=== PATIENT | female | born 1970 | race Caucasian/White ===

== ENCOUNTER 2021-01-02 06:50 | Day surgery (SDC) | payer BC, SELFPAY ==
[2020-12-25 19:26] VITALS: BMI 32.9
--- NOTE | 2021-01-01 09:27 | HP_ITS ---
DATE OF SERVICE: 01/02/2021 PREOPERATIVE DIAGNOSES: 1. Hammertoe deformity, left 5th toe. 2. Skin disease, left 5th toe. PLANNED PROCEDURE: 1. Left 5th toe arthroplasty for hammertoe repair. 2. Excision of skin lesion, left 5th toe. PAST MEDICAL HISTORY: None. CURRENT MEDICATIONS: None. PAST SURGICAL HISTORY: None. FAMILY HISTORY: Denies. SOCIAL HISTORY: The patient is a nonsmoker. Denies any illicit drug use. Relates occasional alcohol use. ALLERGIES: NO KNOWN DRUG ALLERGIES. HOSPITALIZATIONS: None. REVIEW OF SYSTEMS: Within normal limits. HISTORY OF PRESENT ILLNESS: This is a 50-year-old female who presents with pain and throbbing in her left 5th toe that has been present for several months that has been getting progressively worse with shoe gear, has tried change in shoes, soaking as well as different types of padding. PHYSICAL EXAM: GENERAL: Reveals a pleasant, alert, well-nourished, well-developed, well-hydrated individual who demonstrates proper attention to body habitus, in no acute distress. She is oriented x3. NEUROLOGICAL EXAM: Reveals intact sensorium. Pain sensation is normal. Vibratory sensation is intact. Pinprick sensation is normal. There is no anesthesia, burning, paresthesias, or tingling bilaterally. VASCULAR EXAM: DP and PT pulses are 3/4 bilaterally. Capillary refill is immediate to all digits. Skin temperature is warm to cool proximal to distal. Hair growth, texture, elasticity, and turgor are normal bilaterally. Pigmentation is normal and there is no edema. DERMATOLOGICAL EXAM: Reveals keratotic lesion noted at the lateral aspect of the PIP joint on the left fifth toe. ORTHOPEDIC EXAM: Digital deformity reveals adducted 5th toe reveals pain, swelling, redness, enlargement of the PIP joint of the left 5th toe. PLAN: Hammertoe surgery and excision of skin lesion surgery was discussed with the patient in great detail including risks of surgery and not having surgery, the potential surgical complications, the anesthesia, and the usual postoperative course. No guarantees were given. We discussed with the patient complications such as, but not limited to delayed or nonhealing, excessive scarring, excessive swelling, failure of the procedure, floppy toe infection, nonunion, numbness, chronic pain, recurrence, shortened toe, joint stiffness, failure of the procedure, and loss of toe, foot, life, or limb. Alternatives to the procedure were also discussed including conservative care. The patient would like to proceed with surgical treatment. The patient will obtain preoperative labs as well as medical clearance for surgery and anesthesia. The patient is made aware to stop any and all blood thinners including fish oil at least 1 week prior to surgery. The patient is made aware that driving may not be allowed during a portion of postoperative period. The patient is made aware not to utilize any smoking tobacco products at least 1 week prior to surgery and 3 months postoperatively. Prescription for pain medication was deferred. Recommended alternate staggering taking Tylenol Extra Strength 2 tabs and Motrin 800 mg as needed for discomfort. The patient states she wants to take Advil and defers any narcotic pain medication. Wandy Guzman DPM LP/CHRISTY / [id number] MTDD
--- NOTE | 2021-01-01 10:10 | HO.ANESPROP2 ---
Documented by User: Mariela Parhamney 01/01/21 10:13 HPI - Anesthesia Eval Consult details Narrative: 50yo F for Left Hammertoe Repair PCP cleared [facility] Past Medical History Medical History Hammer toe of left foot HLD (hyperlipidemia) IFG (impaired fasting glucose) Social History Social History Smoking Status: Never smoker Use of substances other than those prescribed or required for medical reasons: No Advance Directives: No Advance Directives Information Provided: No Advance Directives on File: No Meds Allergies Allergy/AdvReac Type Severity Reaction Status Date / Time No Known Allergies Allergy Verified 01/02/21 07:20 Home Medications Medication Instructions Recorded Confirmed Type ibuprofen 600 mg PO TID PRN 12/25/20 12/25/20 History Exam Exam Date and Time: January 01, 2021 1010 Height,Weight and Vital Signs: Height 5 ft 2 in Weight 81.647 kg Assessment and Plan Assessment Anesthesia Assessment: Chart Reviewed Documented by User: Juventino Lopes MD 01/02/21 09:07 [facility] Past Medical History Medical History Hammer toe of left foot HLD (hyperlipidemia) IFG (impaired fasting glucose) Social History Social History Smoking Status: Never smoker Use of substances other than those prescribed or required for medical reasons: No Advance Directives: No Advance Directives Information Provided: No Advance Directives on File: No Meds Allergies Allergy/AdvReac Type Severity Reaction Status Date / Time No Known Allergies Allergy Verified 01/02/21 07:20 Home Medications Medication Instructions Recorded Confirmed Type ibuprofen 600 mg PO TID PRN 12/25/20 12/25/20 History Exam Airway Mallampati Class: I TM Dist: >3cm Neck ROM: Full Loose/Missing/Broken Teeth: No Heart: RRR Lungs: NL Assessment and Plan Assessment Anesthesia Assessment: Anesthesia Plan Discussed and Chart Reviewed Final Anesthetic Review NPO: Yes ASA Class: II Final Preanesthetic Review: No Changes in Pt Med Stat, Meds/Allgs Chart Reviewed, Consent Obtained/Reviewed and Anes Risks/Benef Reviewed Patient Risk: Low Procedure Risk: Low Anesthetic Plan Anesthetic Plan: MAC: Disposition: Standard PACU
[2021-01-02 07:32] VITALS: BP 158/89; PULSE 78; RESP 16; TEMP 36.6; O2SAT 97
[2021-01-02] MEDS: Lactated Ringers 1,000 ML 100 ML IVCONT (07:41)
--- NOTE | 2021-01-02 08:41 | MHC.SHP ---
Pre-Procedural Eval Section A The patient is an INPATIENT: No Changes since office visit: No Cold of Flu in the past 2 weeks, No New Medical Problems, No Changes in Medication and No Patient answered all questions The History & Physical has been completed within 30 days and I have reviewed it.: Yes Section B Chief Complaint: Skin Lesion, Hammer Toe Allergies: Allergies Allergy/AdvReac Type Severity Reaction Status Date / Time No Known Allergies Allergy Verified 01/02/21 07:20 Plan I have reviewed the history and physical and performed a pertinent physical examination on my patient. No changes have occurred unless specified.
--- NOTE | 2021-01-02 09:14 | P.BOP_ITS ---
Brief Operative Note Date of Service: 01/02/21 Pre-op diagnosis: Left 5th hammer toe and skin lesion Post-op diagnosis: same Procedure: Excison of skin lesion and hammertoe repair Implants: none Surgeon: Wandy Guzman Anesthesia: MAC and local Lathe Set Up Operator: Petar Hines Estimated blood loss (mL): 1 Tourniquet time (min): 8 Pathology: other Condition: stable Disposition: PACU
[2021-01-02 09:15] VITALS: BP 136/83; PULSE 69; RESP 16; TEMP 36.6; O2SAT 98
[2021-01-02 09:31] VITALS: BP 145/84; PULSE 81; RESP 16; TEMP 36.6; O2SAT 100
--- NOTE | 2021-01-02 10:10 | HO.POSTANES ---
Post Anesthesia Evaluation Post Anesthesia Evaluation Vital Signs: Vital Signs Temp Pulse Resp BP Pulse Ox 01/02/21 09:31 97.9 F 81 16 145/84 H 100 01/02/21 09:15 97.9 F 69 16 136/83 98 01/02/21 07:32 97.9 F 78 16 158/89 H 97 Anesthesia: Monitored Mental Status: Awake Pain Control: Satisfactory Nausea/Vomiting: None Hydration: Adequate Anesthesia-Related Issues: No Anes. Related Issues
--- NOTE | 2021-01-02 10:42 | OP_ITS ---
SURGEON: Wandy Guzman DPM PREOPERATIVE DIAGNOSES: 1. Hammertoe deformity, left 5th toe. 2. Skin disease, left 5th toe. POSTOPERATIVE DIAGNOSES: 1. Hammertoe deformity, left 5th toe. 2. Skin disease, left 5th toe. PROCEDURE PERFORMED: 1. Left 5th digit derotational arthroplasty. 2. Excision of skin lesion, left 5th toe. ESTIMATED BLOOD LOSS: Less than 1 mL. COMPLICATIONS: None. ANESTHESIA: Monitored anesthetic care with local consisting preoperatively of 5 mL of 2% lidocaine plain and 0.5% Marcaine plain. ASSISTANTS: Petar Hines DPM. HEMOSTASIS: Pneumatic ankle tourniquet set at 250 mmHg for 8 minutes. INDICATIONS FOR SURGERY: The patient had painful skin lesion and hammertoe deformity to the left 5th digit with continued pain and burning in the toe. The patient has failed conservative therapies and was ready for surgical intervention. DESCRIPTION OF PROCEDURE: The patient was brought into the operating room, placed on the operating table in the usual supine position, following 2 g of cefazolin was administered, the left foot was prepped and draped in the usual sterile manner. The pneumatic ankle tourniquet was inflated to 250 mmHg and attention was directed to the left 5th toe. A semi-elliptical incision from proximal lateral to distal medial was placed overlying the skin disease and the entire skin lesion was removed and passed the operative site. Skin lesion measured about 1.1 cm. The soft tissues were then freed with great care being taken to retract vital, neuro, and vascular structures. The incision was deepened down to the extensor tendon. The extensor tendon was transected at the level of the PIP joint and head of the proximal phalanx was freed from its osseous attachments. A sagittal saw was used to remove the head of the proximal phalanx and was passed from the operative site. The wound was irrigated with normal sterile saline. The extensor tendon was reapproximated with 3-0 Vicryl in an interrupted suture technique and the skin was reapproximated with 3-0 nylon in a continuous running fashion. The toe was then anesthetized with 3 mL of 0.5% Marcaine plain and 1 mL of dexamethasone. The toe was then dressed with Xeroform, Betadine-soaked gauze, 4x4s, fluffs, Mago, cast padding, and an Bruno bandage. Pneumatic ankle tourniquet was deflated after 8 minutes and prompt capillary refill was noted to all 5 digits. The patient tolerated procedure and anesthesia well. The patient was transferred to recovery room with vital signs stable and vascular status at preoperative levels. Following a period of postoperative recovery, the patient will be discharged home with written and oral postoperative instructions. The patient will follow up in my office for all postoperative followup care. Wandy Guzman DPM LP/CHRISTY / [id number] MTDD
== END 2021-01-02 10:14 | disposition home or self-care (01) ==
LOC: HO.SSS 06:50
PROVIDERS: Visit Provider Podiatrist
PROC: (CPT 28285; principal; 2021-01-02 09:00)
DX: M20.42 Other hammer toe(s) (acquired), left foot (principal); L85.1 Acquired keratosis [keratoderma] palmaris et plantaris
CPT/HCPCS: 28285; 11422; 88304; 88305; 88311; J0690; J1100; J1885; J2250; J2405; J3010